=== PATIENT | female | born 1935 | race Two or more races ===

== ENCOUNTER 2019-12-23 17:10 | Emergency (ER) | payer OTHER ==
[~2019-12-23] VITALS: Ht 170.2 cm; Wt 72.6 kg
[2019-12-23] MEDS ORDERED: KETO10TA2 PO (18:42)
== END 2019-12-23 18:55 | disposition home or self-care (01) ==
LOC: ER 17:10
DX: M54.5 Low back pain (principal)

== ENCOUNTER 2020-01-01 22:08 | Emergency (ER) | payer OTHER ==
[~2020-01-01] VITALS: Ht 160 cm; Wt 72.6 kg
[~2020-01-01 22:08] MED LIST: KETO10TA2 PO
[2020-01-01] MEDS ORDERED: NORVASC10 MG (22:20)
[2020-01-01] MEDS ORDERED: CARVEDILOL (22:21)
[2020-01-02] MEDS ORDERED: MECLIZINE HCL25 MG PO (03:40)
== END 2020-01-02 03:52 ==
LOC: ER 22:08
DX: R53.1 Weakness (principal); I16.0 Hypertensive urgency; I10 Essential (primary) hypertension; R42 Dizziness and giddiness

== ENCOUNTER 2020-08-23 09:33 | Outpatient (CLI) | payer OTHER ==
[~2020-08-23 09:33] MED LIST changes: +CARVEDILOL; +MECLIZINE HCL25 MG PO; +NORVASC10 MG
== END 2020-08-23 09:38 | disposition home or self-care (01) ==
LOC: SONOGRAMA 09:33
DX: E04.2 Nontoxic multinodular goiter (principal); D34 Benign neoplasm of thyroid gland; E04.8 Other specified nontoxic goiter